=== PATIENT | female | born 1950 | race Caucasian/White ===

== ENCOUNTER → 2016-09-03 | Day surgery (SDC) | payer MEDICARE ==
[~2016-09-03] VITALS: Ht 163.8 cm; Wt 47.7 kg
[~2016-09-03] MED LIST: ALPR0.25 PO; ASPI-110 PO; AZEL1SPR2 EACH NARE; CART1SOL EACH EYE; CYCLOPENTOLATE HCL 1% OPHT SOLN 2 ML BTL ONE; FLURBIPROFEN 0.03% OPHT SOLN 2.5 ML BTL ONE; FLUT50SP EACH NARE; IBUP200C PO; LATA.005%O EACH EYE; LIDOCAINE HCL 1% PF 30 ML VIAL ONE; LIDOCAINE HCL 2% JELLY 5 ML SYRINGE ONE; LISI10TA3 PO; PHENYLEPHRINE HCL 10% OPTH SOLN 5 ML BTL ONE; PROPARACAINE HCL 0.5% OPHT SOLN 15 ML BTL ONE; ROSU5 PO; SODIUM CHLORID 0.9% 500 ML INJ 500 ML ONE; TROPICAMIDE 1% OPHT SOLN 15 ML BTL ONE; ZOLP5TAB3 PO
[2016-09-03 08:47] VITALS: BP 130/86; PULSE 56; RESP 18; TEMP 97.9; O2SAT 99
[2016-09-03] MEDS: TOBRAMYCIN/DEXAMETHASONE OPTH OINT 3.5 GM TUBE ONE ×2 (09:43→09:50)
[2016-09-03 10:40] VITALS: BP 133/72; PULSE 64; RESP 16; TEMP 98; O2SAT 98
--- NOTE | 2016-09-04 12:48 | MP ---
cc: OSMEL TITUS M.D. DATE OF SURGERY: 09/03/2016. [facility] NUMBER: [id number] PREOPERATIVE DIAGNOSIS: Visually significant cataract left eye. POSTOPERATIVE DIAGNOSIS: Visually significant cataract left eye. OPERATION: Phacoemulsification with posterior chamber lens implantation, left eye. SURGEON: Osmel Titus MD ANESTHESIA: Topical with MAC. COMPLICATIONS: None. DESCRIPTION OF THE PROCEDURE IN DETAIL: After informed consent was obtained, the patient was brought into the operative suite and placed on appropriate monitors by the anesthesia service. The patient had been given dilating drops and topical lidocaine gel in the holding area. The patient's operative eye was then prepped and draped in the usual sterile fashion. A wire lid speculum was placed. Further 2% lidocaine was then dropped on the cornea prior to beginning the procedure. A paracentesis incision was made in the peripheral cornea with a 1 mm danielle keratome. The anterior chamber was filled with viscoelastic. The anterior chamber was then entered through a stepped, clear corneal incision using a sharp 3 mm danielle keratome. A circular tear capsulorrhexis was then made with a bent needle cystitome. Following hydrodissection of the lens nucleus with balance saline, phacoemulsification of the nucleus was performed using a modified chopping technique. The remaining cortex was removed with irrigation/aspiration. The prior two procedures were both performed using the handpieces of the [employer] phaco unit. The capsular bag was then filled with viscoelastic. The intraocular lens was then injected into the capsular bag and positioned. The type of intraocular lens and its power can be found elsewhere in this chart. The remaining viscoelastic was then removed from the anterior chamber with the IA handpiece. The anterior chamber was reformed with balanced saline. The wound was then closed securely with stromal hydration. It was found to be watertight to an intraocular pressure of at least 30 mmHg by palpation. A small amount of balanced salt solution was then removed through the paracentesis site and the intraocular pressure at the end of the case was approximately 20 by palpation. All drapes were then removed. TobraDex ointment was then placed in the eye, which was closed beneath a semi-pressure patch dressing. The patient tolerated this procedure well and left the operating room awake and alert. The patient is to follow-up in my office in the morning. Osmel MD JERED Hanson/TOREY /10:00 AM /12:38 PM
== END | disposition home or self-care (01) ==
LOC: PHSDC 07:17
PROVIDERS: ATTEND Optometrist Occupational Vision
DX: H25.812 Combined forms of age-related cataract, left eye (principal)
CPT/HCPCS: 00142; 66984; J7040; V2632

== ENCOUNTER → 2016-10-22 | Day surgery (SDC) | payer MEDICARE ==
[~2016-10-22] VITALS: Ht 163.8 cm; Wt 49.1 kg
[~2016-10-22] MED LIST changes: +CHLORHEXIDINE GLUCONATE 2 % 1 PACK (2 CLOTHS) TOPICAL PRN; -CYCLOPENTOLATE HCL 1% OPHT SOLN 2 ML BTL ONE; -FLURBIPROFEN 0.03% OPHT SOLN 2.5 ML BTL ONE; +INSULIN HUMAN REGULAR 1,000 UNITS/10 ML VIAL SQ PRN; +LACTATED RINGER'S 1000 ML IV PRN; -LIDOCAINE HCL 2% JELLY 5 ML SYRINGE ONE; +LIDOCAINE HCL 2% JELLY 5 ML SYRINGE TOPICAL ONE; +METOPROLOL TARTRATE 25 MG TAB PO PRN; -PHENYLEPHRINE HCL 10% OPTH SOLN 5 ML BTL ONE; +POVIDONE IODINE 5% (ANTISEPSIS KIT) 4 APPLICATIONS EACH NARE PRN; -PROPARACAINE HCL 0.5% OPHT SOLN 15 ML BTL ONE; +PROPARACAINE HCL 0.5% OPHT SOLN 15 ML BTL RIGHT EYE ONE; -SODIUM CHLORID 0.9% 500 ML INJ 500 ML ONE; +SODIUM CHLORID 0.9% 500 ML IV PRN; +TOBRAMYCIN/DEXAMETHASONE OPTH OINT 3.5 GM TUBE ONE; -TROPICAMIDE 1% OPHT SOLN 15 ML BTL ONE
[2016-10-22] MEDS: CYCLOPENTOLATE HCL 1% OPHT SOLN 2 ML BTL RIGHT EYE SCH ×4 (06:40→06:55)
[2016-10-22] MEDS: TROPICAMIDE 1% OPHT SOLN 15 ML BTL RIGHT EYE SCH ×4 (06:40→06:55)
[2016-10-22] MEDS: PHENYLEPHRINE HCL 10% OPTH SOLN 5 ML BTL RIGHT EYE SCH ×4 (06:40→06:55)
[2016-10-22] MEDS: FLURBIPROFEN 0.03% OPHT SOLN 2.5 ML BTL RIGHT EYE SCH ×4 (06:40→06:55)
[2016-10-22 06:54] VITALS: BP 135/81; PULSE 98; RESP 18; TEMP 97.9; O2SAT 99
[2016-10-22 09:00] VITALS: BP 131/84; PULSE 62; RESP 16; TEMP 98; O2SAT 99
--- NOTE | 2016-10-23 16:08 | MP ---
cc: OSMEL TITUS M.D. DATE OF SURGERY: 10/22/2016. [facility] NUMBER: [id number] PREOPERATIVE DIAGNOSIS: Visually significant cataract right eye. POSTOPERATIVE DIAGNOSIS: Visually significant cataract right eye. OPERATION: Phacoemulsification with posterior chamber lens implantation, right eye. SURGEON: Osmel Titus MD ANESTHESIA: Topical with MAC. COMPLICATIONS: None. DESCRIPTION OF THE PROCEDURE IN DETAIL: After informed consent was obtained, the patient was brought into the operative suite and placed on appropriate monitors by the anesthesia service. The patient had been given dilating drops and topical lidocaine gel in the holding area. The patient's operative eye was then prepped and draped in the usual sterile fashion. A wire lid speculum was placed. Further 2% lidocaine was then dropped on the cornea prior to beginning the procedure. A paracentesis incision was made in the peripheral cornea with a 1 mm danielle keratome. The anterior chamber was filled with viscoelastic. The anterior chamber was then entered through a stepped, clear corneal incision using a sharp 3 mm danielle keratome. A circular tear capsulorrhexis was then made with a bent needle cystitome. Following hydrodissection of the lens nucleus with balance saline, phacoemulsification of the nucleus was performed using a modified chopping technique. The remaining cortex was removed with irrigation/aspiration. The prior two procedures were both performed using the handpieces of the [employer] phaco unit. The capsular bag was then filled with viscoelastic. The intraocular lens was then injected into the capsular bag and positioned. The type of intraocular lens and its power can be found elsewhere in this chart. The remaining viscoelastic was then removed from the anterior chamber with the IA handpiece. The anterior chamber was reformed with balanced saline. The wound was then closed securely with stromal hydration. It was found to be watertight to an intraocular pressure of at least 30 mmHg by palpation. A small amount of balanced salt solution was then removed through the paracentesis site and the intraocular pressure at the end of the case was approximately 20 by palpation. All drapes were then removed. TobraDex ointment was then placed in the eye, which was closed beneath a semi-pressure patch dressing. The patient tolerated this procedure well and left the operating room awake and alert. The patient is to follow-up in my office in the morning. Osmel MD DIEGO Hanson /10:09 AM /4:11 PM
== END | disposition home or self-care (01) ==
LOC: PHSDC 06:03
PROVIDERS: ATTEND Optometrist Occupational Vision
DX: H25.811 Combined forms of age-related cataract, right eye (principal)
CPT/HCPCS: 00142; 66984; J7040; V2632

== ENCOUNTER 2017-09-18 23:18 | Emergency (ER) | payer MEDICARE ==
[~2017-09-18] VITALS: Ht 162.6 cm; Wt 52.5 kg
[~2017-09-18 23:18] MED LIST changes: -ASPI-110 PO; -CHLORHEXIDINE GLUCONATE 2 % 1 PACK (2 CLOTHS) TOPICAL PRN; -INSULIN HUMAN REGULAR 1,000 UNITS/10 ML VIAL SQ PRN; -LACTATED RINGER'S 1000 ML IV PRN; -LIDOCAINE HCL 1% PF 30 ML VIAL ONE; -LIDOCAINE HCL 2% JELLY 5 ML SYRINGE TOPICAL ONE; -LISI10TA3 PO; -METOPROLOL TARTRATE 25 MG TAB PO PRN; -POVIDONE IODINE 5% (ANTISEPSIS KIT) 4 APPLICATIONS EACH NARE PRN; -PROPARACAINE HCL 0.5% OPHT SOLN 15 ML BTL RIGHT EYE ONE; -SODIUM CHLORID 0.9% 500 ML IV PRN; -TOBRAMYCIN/DEXAMETHASONE OPTH OINT 3.5 GM TUBE ONE
[2017-09-19 00:08] VITALS: BP 142/71; PULSE 56; RESP 18; TEMP 97.5; O2SAT 98
[2017-09-19] MEDS ORDERED: MIRA3350 PO (01:09)
[2017-09-19] MEDS ORDERED: LATA0.002 EACH EYE (01:09)
[2017-09-19] MEDS ORDERED: SACC1CAP3 PO (01:09)
[2017-09-19] MEDS ORDERED: BIOT10TA PO (01:09)
[2017-09-19] MEDS ORDERED: SODIUM CHLORIDE 0.9% FLUSH 10 ML FLUSH IVF PRN (01:45)
[2017-09-19 02:01] LABS: AUTOMATED NEUTROPHIL # 2.4 TH/MM3 (1.8-7.7); BASOPHIL # 0.1 TH/MM3 (0-0.2); BASOPHIL % 1.4 % (0.0-2.0); EOSINOPHIL # 0.2 TH/MM3 (0-0.4); EOSINOPHIL % 3.5 % (0.0-4.0); HEMATOCRIT 38.1 % (35.0-46.0); HEMOGLOBIN 12.7 GM/DL (11.6-15.3); LYMPH % 41.3 % (9.0-44.0); LYMPHOCYTE # 2.2 TH/MM3 (1.0-4.8); MEAN CELL VOLUME 92.8 FL (80.0-100.0); MEAN CORPUSCULAR HGB CONC 33.3 % (32.0-36.0); MEAN PLATELET VOLUME 9.4 FL (7.0-11.0); MONO % 7.1 % (0.0-8.0); MONOCYTE # 0.4 TH/MM3 (0-0.9); NEUT % 46.7 % (16.0-70.0); PLATELET COUNT 175 TH/MM3 (150-450); RED BLOOD COUNT 4.11 MIL/MM3 (4.00-5.30); RED CELL DISTRIBUTION WIDTH 11.6 % (11.6-17.2); WHITE BLOOD COUNT 5.3 TH/MM3 (4.0-11.0)
[2017-09-19 02:11] LABS: INTERNATIONAL NORMALIZED RATIO 1.1 RATIO; PROTHROMBIN TIME - PATIENT 10.7 SEC (9.8-11.6)
--- NOTE | 2017-09-19 02:12 | RADRPT ---
EXAM DATE: 09/19/2017 2:05 AM EDT AGE/SEX: 67 years / Female INDICATIONS: Chest pain on the left side, radiates down left arm. CLINICAL DATA: This is the patient's initial encounter. Patient reports that signs and symptoms have been present for 1 day and indicates a pain score of 1/10. MEDICAL/SURGICAL HISTORY: . Anxiety, gastroperesis, mytrovalve prolapse. Hysterectomy. COMPARISON: DEL, CT CHEST W/O CONTRAST, 09/17/2017. [facility], CHEST SINGLE AP, 10/07/2015. . FINDINGS: Bronchiectasis and patchy consolidation seen of both lower lobes. No definite change from the recent outpatient CT. No pleural effusion or pneumothorax have developed. Normal, stable heart size. CONCLUSION: Bronchiectasis and mild patchy infectious or inflammatory appearing infiltrate in both lower lobes. Electronically signed by: Onofre Storey MD 09/19/2017 2:11 AM EDT
[2017-09-19] MEDS ORDERED: AZIT500T2 PO (02:27)
[2017-09-19 02:46] VITALS: BP 135/72; PULSE 55; RESP 17; O2SAT 97
[2017-09-19 03:04] LABS: BICARBONATE 31.8 MEQ/L (21.0-32.0); BLOOD UREA NITROGEN 15 MG/DL (7-18); CHLORIDE 103 MEQ/L (98-107); CREATININE 0.75 MG/DL (0.50-1.00); GLOMERULAR FILTRATION RATE 77 ML/MIN (>89); GLUCOSE,RANDOM 76 MG/DL (74-106); MAGNESIUM 2.2 MG/DL (1.5-2.5); SODIUM (NA) 141 MEQ/L (136-145)
[2017-09-19 03:08] LABS: TROPONIN I LESS THAN 0.02 NG/ML (0.02-0.05)
[2017-09-19 04:00] VITALS: BP_SYST 132; BP_SYST 136; BP_SYST 138; BP_DIAS 68; BP_DIAS 70; BP_DIAS 76; PULSE 58; RESP 18; O2SAT 97
[2017-09-19 04:41] LABS: D-DIMER LESS THAN 0.19 MG/L FEU (0.00-0.50)
[2017-09-19 05:04] VITALS: BP 136/78; PULSE 60; RESP 20; O2SAT 97
--- NOTE | 2017-09-19 05:06 | PD ---
HPI Chief Complaint: Pain: Acute or Chronic Time Seen by Provider: 01:42 Travel History International Travel<30 days: No Contact w/Intl Traveler<30days: No Traveled to known affect area: No History of Present Illness HPI 67-year-old female presents to the emergency for complaint of left-sided chest discomfort associated with recent diagnosis of pneumonia patient is taking antibiotic. Patient states she was sent for a CT of the chest by her primary and was identified to have a persistent finding consistent with a pneumonia. Patient denies any fever chills or productive cough. Patient states chest pain soreness of the chest wall is associated with cough only otherwise she does not experience any discomfort in the chest. No sweats no nausea no vomiting no short of breath. Patient did notice some left arm discomfort yesterday. Patient is undergone cardiac catheterization in 2014 revealed no significant coronary vessel disease 20-30% stenosis reportedly. Currently her pain level is 0/10 intensity no nausea no throat neck jaw back shoulder arm pain. Patient also denies any lower extremity pain or swelling. No family history of current history patient of clotting disorder no connective tissue disorder. Patient's had no recent protracted illness bedrest surgical procedure long-distance travel. Patient is unable to identify exacerbating or alleviating factors. PFSH Past Medical History Narrative Medical Anxiety dyslipidemia CAD; nursing notes reviewed Anxiety: Yes Cancer: No Cardiovascular Problems: Yes (MITRAL VALVE PROLAPSE) High Cholesterol: Yes Coronary Artery Disease: Yes Diabetes: No Diminished Hearing: No Endocrine: No Gastrointestinal Disorders: Yes (GASTROPARESIS) Glaucoma: Yes Genitourinary: No Hepatitis: No Hiatal Hernia: No Hypertension: Yes Immune Disorder: No Medical other: Yes (VERTIGO) Musculoskeletal: No Neurologic: No Psychiatric: No Reproductive: No Respiratory: Yes (PLEURISY) Immunizations Current: Yes Pneumonia: Yes Thyroid Disease: No Menopausal: Yes Past Surgical History Abdominal Surgery: No AICD: No Cardiac Surgery: No Ear Surgery: No Endocrine Surgery: No Eye Surgery: Yes (BILATERAL CATARACT) Genitourinary Surgery: No Gynecologic Surgery: Yes (PARTIAL HYSTERECTOMY) Hysterectomy: Yes Joint Replacement: No Oral Surgery: No Pacemaker: No Thoracic Surgery: No Other Surgery: Yes Social History Alcohol Use: Yes Tobacco Use: No Substance Use: No Allergies-Medications (Allergen,Severity, Reaction): Coded Allergies: bacitracin (Unverified Allergy, Severe, RASH/REDNESS, 09/19/17) gramicidin D (Unverified Allergy, Severe, RASH/REDNESS, 09/19/17) neomycin (Unverified Allergy, Severe, RASH/REDNESS, 09/19/17) polymyxin B (Unverified Allergy, Severe, RASH/REDNESS, 09/19/17) propranolol (Unverified Allergy, Severe, HRT RACING, 09/19/17) sulfamethoxazole (Unverified Allergy, Severe, NAUSEA, 09/19/17) trimethoprim (Unverified Allergy, Severe, NAUSEA, 09/19/17) adhesive (Unverified Allergy, Intermediate, rash where adhesive is, ) amitriptyline (Unverified Allergy, Intermediate, HRT RACING, 09/19/17) brimonidine (Unverified Allergy, Intermediate, FATIGUE, TEARING OF EYES AND REDDNESS, 09/19/17) dorzolamide (Unverified Allergy, Intermediate, tearing up and reddness, ) guaifenesin (Unverified Allergy, Intermediate, nauseaous, 09/19/17) levofloxacin (Unverified Allergy, Intermediate, ASCITIES, 09/19/17) morphine (Unverified Allergy, Intermediate, Hallucinations, 09/19/17) timolol (Unverified Allergy, Intermediate, EYE TEARING/REDNESS, 09/19/17) Uncoded Allergies: BANDAIDS (Adverse Reaction, Mild, 09/30/13) Reported Meds & Prescriptions Reported Meds & Active Scripts Active Reported Azithromycin 500 Mg Tab 500 Mg PO DAILY Probiotic (Saccharomyces Boulardii) 250 Mg Cap 250 Mg PO DAILY Biotin 10 Mg Tab 10 Mg PO DAILY Miralax Powder (Polyethylene Glycol 3350 Powder) 17 Gm Powd 17 Gm PO DAILY Mix and dissolve one measuring cap-ful (17 grams) in water or juice. Latanoprost Opth Drops (Latanoprost) 0.005% Drops 1 Drop EACH EYE HS Refrigerate until opened. Ibuprofen 200 Mg Cap 400 Mg PO Q6H PRN Zolpidem (Zolpidem Tartrate) 5 Mg Tab 5 Mg PO HS PRN Fluticasone Nasal [place] 50 Mcg/Act Naspr 50 Mcg EACH NARE BID 50 mcg/spray Crestor (Rosuvastatin Calcium) 5 Mg Tab 5 Mg PO WEDNESDAY Carteolol Opth Drops 1% Soln 1 Drop EACH EYE BID Azelastine Nasal [place] (Azelastine HCl) 0.1% [place] 1 [place] EACH NARE BID PRN Review of Systems Except as stated in HPI: all other systems reviewed are Neg Physical Exam Narrative GENERAL: Well-developed well-nourished female no acute distress or respiratory distress SKIN: Warm and dry. HEAD: Normocephalic. EYES: No scleral icterus. No injection or drainage. NECK: Supple, trachea midline. No JVD or lymphadenopathy. CARDIOVASCULAR: Regular rate and rhythm without murmurs, gallops, or rubs. RESPIRATORY: Breath sounds equal bilaterally. No accessory muscle use. GASTROINTESTINAL: Abdomen soft, non-tender, nondistended. MUSCULOSKELETAL: No cyanosis, or edema. BACK: Nontender without obvious deformity. No CVA tenderness. Data Data Last Documented VS Vital Signs Date Time Temp Pulse Resp B/P (MAP) Pulse Ox O2 Delivery O2 Flow Rate FiO2 09/19/17 05:13 60 20 143/71 (95) 97 09/19/17 05:04 Room Air 09/19/17 00:08 97.5 Orders Orders Electrocardiogram (09/19/17 01:42) Basic Metabolic Panel (Bmp) (09/19/17 01:42) Ckmb (Isoenzyme) Profile (09/19/17 01:42) Complete Blood Count With Diff (09/19/17 01:42) Magnesium (Mg) (09/19/17 01:42) Prothrombin Time / Inr (Pt) (09/19/17 01:42) Act Partial Throm Time (Ptt) (09/19/17 01:42) Troponin I (09/19/17 01:42) Ecg Monitoring (09/19/17 01:42) Bilateral Bp Monitoring (09/19/17 01:42) Iv Access Insert/Monitor (09/19/17 01:42) Oximetry (09/19/17 01:42) Oxygen Administration (09/19/17 01:42) Sodium Chloride 0.9% Flush (Ns Flush) (09/19/17 01:45) Chest, Pa & Lat (09/19/17 01:42) CKMB (09/19/17 01:45) CKMB% (09/19/17 01:45) D-Dimer (09/19/17 01:45) Ed Discharge Order (09/19/17 05:03) Labs Laboratory Tests Test 09/19/17 01:45 White Blood Count 5.3 TH/MM3 Red Blood Count 4.11 MIL/MM3 Hemoglobin 12.7 GM/DL Hematocrit 38.1 % Mean Corpuscular Volume 92.8 FL Mean Corpuscular Hemoglobin 31.0 PG Mean Corpuscular Hemoglobin Concent 33.3 % Red Cell Distribution Width 11.6 % Platelet Count 175 TH/MM3 Mean Platelet Volume 9.4 FL Neutrophils (%) (Auto) 46.7 % Lymphocytes (%) (Auto) 41.3 % Monocytes (%) (Auto) 7.1 % Eosinophils (%) (Auto) 3.5 % Basophils (%) (Auto) 1.4 % Neutrophils # (Auto) 2.4 TH/MM3 Lymphocytes # (Auto) 2.2 TH/MM3 Monocytes # (Auto) 0.4 TH/MM3 Eosinophils # (Auto) 0.2 TH/MM3 Basophils # (Auto) 0.1 TH/MM3 CBC Comment DIFF FINAL Differential Comment Prothrombin Time 10.7 SEC Prothromb Time International Ratio 1.1 RATIO Activated Partial Thromboplast Time 26.2 SEC D-Dimer Quantitative (PE/DVT) LESS THAN 0.19 MG/L FEU Blood Urea Nitrogen 15 MG/DL Creatinine 0.75 MG/DL Random Glucose 76 MG/DL Calcium Level 9.0 MG/DL Magnesium Level 2.2 MG/DL Sodium Level 141 MEQ/L Potassium Level 4.3 MEQ/L Chloride Level 103 MEQ/L Carbon Dioxide Level 31.8 MEQ/L Anion Gap 6 MEQ/L Estimat Glomerular Filtration Rate 77 ML/MIN Total Creatine Kinase 292 U/L Creatine Kinase MB 3.2 NG/ML Creatine Kinase MB % 1.1 % Troponin I LESS THAN 0.02 NG/ML MDM Medical Decision Making Medical Screen Exam Complete: Yes Emergency Medical Condition: Yes Medical Record Reviewed: Yes Interpretation(s) Last Impressions Chest X-Ray 09/19/17 0142 Signed Impressions: CONCLUSION: Bronchiectasis and mild patchy infectious or inflammatory appearing infiltrate in both lower lobes. CBC & BMP Diagram 09/19/17 01:45 Calcium Level 9.0, Magnesium Level 2.2 Vital Signs Date Time Temp Pulse Resp B/P (MAP) Pulse Ox O2 Delivery O2 Flow Rate FiO2 09/19/17 05:13 60 20 143/71 (95) 97 09/19/17 05:04 60 20 136/78 (97) 97 Room Air 09/19/17 04:00 136/76 (96) 138/68 (91) 09/19/17 04:00 58 18 132/70 (90) 97 Room Air 09/19/17 02:46 55 17 135/72 (93) 97 Room Air 09/19/17 01:45 Room Air 09/19/17 01:45 Room Air 09/19/17 01:10 18 09/19/17 00:08 97.5 56 18 142/71 (94) 98 Differential Diagnosis Chest pain atypical chest pain ACS myocardial infarction pneumonia bronchitis and PE Narrative Course IV access obtained specimens collections of resulting Patient rest and waiting patiently for results EKG sinus bradycardia rate [address] elevation injury pattern or ectopy noted Patient informed of lab results including d-dimer of 0.19. Patient encouraged to follow-up with her managing physician Patient's case discussed in detail with her with recommendation for observation admission but does not want to be admitted and reports she will follow-up with her primary care provider. Patient denies other concerns or complaints. Diagnosis Primary Impression: Pleuritic chest pain Additional Impressions: Bronchiectasis Qualified Codes: J47.9 - Bronchiectasis, uncomplicated Pulmonary infiltrate on chest x-ray Referrals: Primary Care Physician 2 days Patient Instructions: General Instructions Additional Instructions: Continue current medications and antibiotics as presently prescribed Follow-up with primary care provider call office on Wednesday to schedule follow- up appointment Take low-dose baby aspirin daily Return to the emergency department for any concerns or change in condition May take acetaminophen/Tylenol every 4 hours as needed for fever 100.4F or greater Disposition: 01 DISCHARGE HOME Condition: Stable Geri Donnelly MD September 19, 2017 05:06
[2017-09-19 05:13] VITALS: BP 143/71
--- NOTE | 2017-09-19 14:21 | EKG ---
Date Performed: 09/19/2017 Time Performed: 02:57:27 PTAGE: 67 years EKG: SINUS BRADYCARDIA POSSIBLE RIGHT VENTRICULAR CONDUCTION DELAY BORDERLINE ECG Compared to PREVIOUS TRACING , no signficant change. PREVIOUS TRACIN10/07/2015 21.24 DOCTOR: Edmond Vazquez Interpretating Date/Time 09/19/2017 14:21:06
== END 2017-09-19 05:18 | disposition home or self-care (01) ==
LOC: PHED 23:18
DX: J47.9 Bronchiectasis, uncomplicated (principal); R94.31 Abnormal electrocardiogram [ECG] [EKG]; F41.9 Anxiety disorder, unspecified; E78.5 Hyperlipidemia, unspecified; I25.10 Atherosclerotic heart disease of native coronary artery without angina pectoris; H40.9 Unspecified glaucoma; I10 Essential (primary) hypertension; I34.1 Nonrheumatic mitral (valve) prolapse
CPT/HCPCS: 71046; 80048; 82550; 82552; 83735; 84484; 85025; 85379; 85610; 85730; 93005; 99285